=== PATIENT | female | born 1985 ===

== ENCOUNTER 2018-03-25 14:10 | Emergency (ER) | payer BC ==
[2018-03-25 14:21] VITALS: O2SAT 99; BMI 24.1
[2018-03-25] MEDS ORDERED: Sodium Chloride 0.9% 1,000 ML IV STA ×2 (14:31→15:48)
[2018-03-25 15:00] LABS: BASO % 0.3 % (0.0-2.0); EOS % 0.2 % (0.0-4.0); HEMOGLOBIN 14.4 g/dL (12.0-16.0); LYMPH # 1.1 K/uL (1.0-4.3); LYMPH % 7.5 % (20.0-40.0); MEAN CELL VOLUME 90.1 fl (81.0-99.0); MEAN CORPUSCULAR HEMOGLOBIN 30.7 pg (27.0-31.0); MEAN PLATELET VOLUME 8.1 fl (7.2-11.7); MONO # 0.4 K/uL (0.0-0.8); MONO % 3.1 % (0.0-10.0); NEUT % 88.9 % (50.0-75.0); PLATELET COUNT 338 K/uL (130-400); RBC 4.71 Mil/uL (3.80-5.20); RED CELL DISTRIBUTION WIDTH 12.2 % (11.5-14.5); WHITE BLOOD COUNT 14.6 K/uL (4.8-10.8)
[2018-03-25 15:19] LABS: ALB/GLOB RATIO 1.3 (1.0-2.1); ALBUMIN 4.8 g/dL (3.5-5.0); GFR AFRICAN-AMERICAN > 60; GFR NON-AFRICAN AMERICAN > 60; LIPASE 34 U/L (23-300)
[2018-03-25 15:24] LABS: ALT/SGPT 31 U/L (9-52); AST/SGOT 51 U/L (14-36); BLOOD UREA NITROGEN 10 mg/dl (7-17)
--- NOTE | 2018-03-25 15:51 | ED PDOC ---
HPI: Abdomen Time Seen by Provider: 03/25/18 14:21 Chief Complaint (Nursing): Abdominal Pain Chief Complaint (Provider): Vomiting History Per: Patient History/Exam Limitations: no limitations Onset/Duration Of Symptoms: Hrs (x15) Current Symptoms Are (Timing): Still Present Quality Of Discomfort: Cramping Associated Symptoms: Nausea, Vomiting Additional Complaint(s): 32 year old female with a history of anxiety presents to the ED with several episodes of nonbloody nonbilious vomiting onset 1 am. She reports she started having cramping abdominal pain after vomiting, but pain is not constant. Patient states she has nausea, but denies diarrhea, cough, chest pain, fever, or any other medical complaints. PMD: Dr. Avila Past Medical History Reviewed: Historical Data, Nursing Documentation, Vital Signs Vital Signs: Last Vital Signs Temp 97.6 F 03/25/18 14:16 Pulse 88 03/25/18 14:16 Resp 18 03/25/18 14:16 BP 107/64 03/25/18 14:16 Pulse Ox 99 03/25/18 18:28 - Medical History PMH: Anxiety - Surgical History Surgical History: No Surg Hx - Family History Family History: States: Unknown Family Hx - Social History Current smoker - smoking cessation education provided: No Ex-Smoker (has not smoked in the last 12 months): No Alcohol: None Drugs: Denies - Home Medications Home Medications: Ambulatory Orders Medication Instructions Recorded Ondansetron ODT [Zofran ODT] 4 mg PO Q8 PRN #12 odt 03/25/18 - Allergies Allergies/Adverse Reactions: Allergies Allergy/AdvReac Type Severity Reaction Status Date / Time No Known Allergies Allergy Verified 03/25/18 14:14 Review of Systems ROS Statement: Except As Marked, All Systems Reviewed And Found Negative Constitutional: Negative for: Fever Respiratory: Negative for: Cough Gastrointestinal: Positive for: Nausea, Vomiting, Abdominal Pain. Negative for : Diarrhea Physical Exam - Reviewed Nursing Documentation Reviewed: Yes Vital Signs Reviewed: Yes - Physical Exam Appears: Positive for: No Acute Distress (but anxious) Head Exam: Positive for: ATRAUMATIC, NORMOCEPHALIC Skin: Positive for: Normal Color, Warm, Dry ENT: Positive for: Normal ENT Inspection Neck: Positive for: Normal, Painless ROM, Supple Cardiovascular/Chest: Positive for: Regular Rate, Rhythm. Negative for: Murmur Respiratory: Positive for: Normal Breath Sounds. Negative for: Respiratory Distress Gastrointestinal/Abdominal: Positive for: Soft. Negative for: Tenderness, Distended Back: Positive for: Normal Inspection Extremity: Positive for: Normal ROM (upper and lower extremities) Neurologic/Psych: Positive for: Alert, Oriented (x3). Negative for: Motor/ Sensory Deficits - Laboratory Results Result Diagrams: 03/25/18 14:52 03/25/18 14:52 - ECG O2 Sat by Pulse Oximetry: 99 (RA) Pulse Ox Interpretation: Normal - Progress Re-evaluation Time: 06:00 Condition: Re-examined, Improved Medical Decision Making Medical Decision Making: Time: 14:31 Initial Impression: Vomiting Differential diagnoses include but are not limited to: acute gastritis, pancreatitis, cholecystitis, UTI, rule out Initial Plan: --CMP --Lipase --CBC with differentials --Bentyl 10 mg PO --NS --Zofran 4 mg Time: 15:48 --HCG Time: 16:47 --Abdomen/Pelvis CT Time: 17:54 Abdomen/Pelvis CT: FINDINGS: LOWER THORAX: Unremarkable. LIVER: Liver is mildly enlarged measuring nearly 19 cm in CC dimension. Mild diffuse fatty hepatic infiltration felt to be present. No obvious hepatic mass or collection. Portal and splenic veins are opacified. GALLBLADDER AND BILE DUCTS: Gallbladder physiologically distended. No stones. . PANCREAS: Unremarkable. No mass. No ductal dilatation. SPLEEN: Unremarkable. No splenomegaly. ADRENALS: There are no adrenal lesions. . KIDNEYS AND URETERS: Kidneys demonstrate symmetric nephrograms. No evidence of nephrolithiasis or hydronephrosis. BLADDER: Urinary bladder is incompletely distended which presumably in part accounts for thick-walled appearance. Correlation recommended to exclude cystitis. TheGrossly unremarkable. REPRODUCTIVE: . There appears to be free fluid in the cul de sac surrounding both ovaries with questionable small approximately 9 mm follicular cyst left ovary. Pelvic ultrasound follow-up is recommended. APPENDIX: Normal-appearing appendix best seen on axial image number [id number]. BOWEL: Unremarkable. No obstruction. No gross mural thickening. PERITONEUM: Unremarkable. No fluid collection. No free air. Small fat containing umbilical hernia. LYMPH NODES: Unremarkable. No enlarged lymph nodes. VASCULATURE: Unremarkable. No aortic aneurysm. BONES: No fracture or destructive lesion. OTHER FINDINGS: None. IMPRESSION: The there appears to be bilateral periadnexal fluid extending into the cul-de- sac. Questionable involuting left ovarian cyst. Follow-up pelvic ultrasound could be performed confirm. No evidence of nephrolithiasis. . . Urinary bladder is collapsed which presumably accounts for thick-walled appearance however correlation with urinalysis recommended Mild hepatomegaly with fatty infiltration. No evidence of cholelithiasis. No evidence of acute appendicitis Time: 18:26 --Patient reevaluated, states she is feeling much better. She was able to tolerate PO challenge. Reviewed CT and labs. Patient medically cleared for discharge. Scribe Attestation: Documented by Meka Cortez, acting as a scribe for Joel Ramos MD Provider Scribe Attestation: All medical record entries made by the Scribe were at my direction and personally dictated by me. I have reviewed the chart and agree that the record accurately reflects my personal performance of the history, physical exam, medical decision making, and the department course for this patient. I have also personally directed, reviewed, and agree with the discharge instructions and disposition. Disposition - Clinical Impression Clinical Impression: Vomiting, Abdominal pain - Patient ED Disposition Is Patient to be Admitted: No Doctor Will See Patient In The: Office Counseled Patient/Family Regarding: Studies Performed, Diagnosis, Need For Followup - Disposition Disposition: Routine/Home Disposition Time: 18:38 Condition: GOOD Additional Instructions: Take your medications as instructed. Follow up with your PCP in 2-3 days. Return for worsening. Prescriptions: Ondansetron ODT [Zofran ODT] 4 mg PO Q8 PRN #12 odt PRN Reason: Nausea/Vomiting Instructions: Nausea and Vomiting, Adult (DC), Acute Abdomen (Belly Pain)
[2018-03-25 16:29] LABS: BANDS 1 % (0-2); EOSINOPHIL 1 % (0-7); LYMPHOCYTE 4 % (20-50); MONOCYTE 8 % (0-10); NEUTROPHIL 86 % (42-75); TOTAL CELLS COUNTED 100
[2018-03-25 16:30] LABS: PLATELET ESTIMATE NORMAL (NORMAL)
[2018-03-25] MEDS ORDERED: Iohexol 300 100 ML IJ ONE (17:24)
[2018-03-25] MEDS ORDERED: Sodium Chloride 0.9% 50 ML IV ONE (17:24)
--- NOTE | 2018-03-25 17:56 | CT ---
PROCEDURE: CT abdomen pelvis dated 03/25/2018 HISTORY: Abdominal pain vomtiing COMPARISON: None. TECHNIQUE: Contiguous axial images of the abdomen and pelvis performed following intravenous injection of approximately 90 cc Omnipaque 300 contrast material. Additional 2D sagittal and coronal reformats generated. Radiation dose: Total exam DLP = 450.03 mGy-cm. This CT exam was performed using one or more of the following dose reduction techniques: Automated exposure control, adjustment of the mA and/or kV according to patient size, and/or use of iterative reconstruction technique. FINDINGS: LOWER THORAX: Unremarkable. LIVER: Liver is mildly enlarged measuring nearly 19 cm in CC dimension. Mild diffuse fatty hepatic infiltration felt to be present. No obvious hepatic mass or collection. Portal and splenic veins are opacified. GALLBLADDER AND BILE DUCTS: Gallbladder physiologically distended. No stones. . PANCREAS: Unremarkable. No mass. No ductal dilatation. SPLEEN: Unremarkable. No splenomegaly. ADRENALS: There are no adrenal lesions. . KIDNEYS AND URETERS: Kidneys demonstrate symmetric nephrograms. No evidence of nephrolithiasis or hydronephrosis. BLADDER: Urinary bladder is incompletely distended which presumably in part accounts for thick-walled appearance. Correlation recommended to exclude cystitis. TheGrossly unremarkable. REPRODUCTIVE: . There appears to be free fluid in the cul de sac surrounding both ovaries with questionable small approximately 9 mm follicular cyst left ovary. Pelvic ultrasound follow-up is recommended. APPENDIX: Normal-appearing appendix best seen on axial image number [id number]. BOWEL: Unremarkable. No obstruction. No gross mural thickening. PERITONEUM: Unremarkable. No fluid collection. No free air. Small fat containing umbilical hernia. LYMPH NODES: Unremarkable. No enlarged lymph nodes. VASCULATURE: Unremarkable. No aortic aneurysm. BONES: No fracture or destructive lesion. OTHER FINDINGS: None. IMPRESSION: The there appears to be bilateral periadnexal fluid extending into the cul-de-sac. Questionable involuting left ovarian cyst. Follow-up pelvic ultrasound could be performed confirm. No evidence of nephrolithiasis. . . Urinary bladder is collapsed which presumably accounts for thick-walled appearance however correlation with urinalysis recommended Mild hepatomegaly with fatty infiltration. No evidence of cholelithiasis. No evidence of acute appendicitis
[2018-03-25 18:56] VITALS: BP 128/62; PULSE 77; RESP 16; TEMP 98
== END 2018-03-25 18:58 | disposition home or self-care (01) ==
LOC: H.ER 14:10
DX: R10.9 Unspecified abdominal pain (principal); R11.10 Vomiting, unspecified; Z87.891 Personal history of nicotine dependence
CPT/HCPCS: 74177; 80053; 81025; 83690; 84703; 85025; 96374; 99284; J2405; J7030; Q9967